=== PATIENT | male | born 1940 | race Caucasian/White ===

== ENCOUNTER 2018-08-13 13:43 | Emergency (ER) | payer MEDICARE ==
[~2018-08-13 13:43] MED LIST: Iopamidol 370 76% 100 ML VIAL ONE
[2018-08-13 14:19] LABS: Bilirubin Small (Negative); Blood, Urine Large (Negative); Clarity Cloudy (Clear); Glucose, Urine (Dipstick) 100 mg/dL (Negative); Leukocyte Negative (Negative); Nitrite Positive (Negative); Protein, Urine (Dipstick) > or equal to 300 mg/dL (Neg-Trace); Specific Gravity, Urine 1.025 (1.005-1.030)
[2018-08-13 14:21] LABS: #Basophils 0.1 thou/uL (0.0-0.2); #Eosinphils 0.2 thou/uL (0.0-0.7); #Lymphocytes 2.3 thou/uL (1.20-3.40); #Monocytes 0.8 thou/uL (0.11-0.59); %Basophils 1.4 % (0.0-1.0); %Eosinophils 3.7 % (0.0-10.0); %Lymphocytes 36.3 % (21.0-51.0); %Monocytes 11.8 % (0.0-10.0); %Neutrophils 46.8 % (42.0-75.0); Hemoglobin 13.1 g/dL (14.0-18.0); Mean Corpuscular HGB CONC 34.3 g/dL (32.0-36.0); Mean Corpuscular Hemoglobin 29.8 pg (27.0-31.0); Mean Platelet Volume 6.4 fL (7.4-10.4); Platelet Count 219 thou/uL (130-400); RBC Distribution Width 11.9 % (11.5-14.5); Red Blood Cell (RBC) Count 4.39 mill/uL (4.70-6.10); White Blood Cell (WBC) Count 6.4 thou/uL (4.8-10.8)
[2018-08-13 14:22] LABS: RBC/HPF GREATER THAN 50-TNTC HPF (0-3); Squamous Epithelial 0-3 HPF (0-3); WBC/HPF 0-3 HPF (0-3)
[2018-08-13 14:32] LABS: ALT (SGPT) 30 U/L (8-55); AST (SGOT) 29 U/L (5-34); Albumin 4.2 g/dL (3.4-4.8); Alkaline Phosphatase 81 U/L (40-150); Anion Gap 12 mmol/L (10-20); BUN (Urea Nitrogen) 14 mg/dL (8.4-25.7); Bilirubin, Total 0.6 mg/dL (0.2-1.2); Calc. Creatinine Clearance 0 mL/min (70-130); Calcium 9.4 mg/dL (7.8-10.44); Carbon Dioxide 29 mmol/L (23-31); Chloride 97 mmol/L (98-107); Estimated GFR-MDRD Greater than 90; Glucose 96 mg/dL (83-110); Potassium 3.1 mmol/L (3.5-5.1); Protein, Total 7.2 g/dL (5.8-8.1); Sodium 135 mmol/L (136-145)
--- NOTE | 2018-08-13 15:31 | CT ---
CT OF THE ABDOMEN AND PELVIS WITH AND WITHOUT IV CONTRAST: INDICATION: Hematuria. CONTRAST: 100 cc of Isovue 370. COMPARISON: None. FINDINGS: There is a prominent focus of hemorrhage seen within the lower aspect of the base of the bladder pao uring 3.4 cm. The prostate is enlarged measuring 5.3 cm. No gross solid renal lesion is evident. N o gross urothelial lesion is noted. Lung bases are clear. The liver, pancreas, adrenal glands, and spleen appear within normal limits. No free fluid or enlarg ed lymph nodes are evident. There are mild calcifications involving the abdominopelvic vasculature. There are scattered diverticula present involving the colon. There is scattered degenerative and osteoarthritic change. IMPRESSION: 1. Large blood clot seen within the lower pelvis. No definite enhancing mass lesion is evident with in the lumen of the bladder. Would recommend further evaluation with cystoscopy. 2. No solid renal lesion demonstrated. 3. Small hypodensity involving both kidneys likely reflective of tiny cyst. 4. Other chronic findings as above. POS: C
== END 2018-08-13 16:05 | disposition home or self-care (01) ==
LOC: SCSER 13:43
DX: N30.91 Cystitis, unspecified with hematuria (principal); E78.5 Hyperlipidemia, unspecified; I10 Essential (primary) hypertension; Z79.899 Other long term (current) drug therapy
CPT/HCPCS: 74178; 80053; 81003; 81015; 85025; 87086; Q9967